=== PATIENT | female | born 1985 | race Caucasian/White ===

== ENCOUNTER → 2021-12-19 16:11 | Outpatient (CLI) | payer OTHER, MEDICAID, SELFPAY ==
[2021-12-19 17:20] LABS: Influenza A - CEPHEID Flu A NEGATIVE (NEGATIVE); Influenza B - CEPHEID Flu B NEGATIVE (NEGATIVE)
== END ==
PROVIDERS: PCP Physician Assistant; Visit Provider Physician Assistant
DX: R05.9 Cough, unspecified (principal); R09.81 Nasal congestion
CPT/HCPCS: 87502

== ENCOUNTER 2022-01-30 19:14 | Emergency (ER) | payer OTHER, MEDICAID, SELFPAY ==
[2022-01-30 19:40] VITALS: BP 112/66; PULSE 80; RESP 18; TEMP 36.6; O2SAT 99
--- NOTE | 2022-01-30 19:42 | DI.RAD.S_ITS ---
PROCEDURE: XR KNEE RT 3V INDICATIONS: Trauma, fall, contusion, pain TECHNIQUE: 3 views of the knee were acquired. COMPARISON: None. FINDINGS: Small suprapatellar knee joint effusion. No fracture or dislocation. Regional soft tissues otherwise normal. IMPRESSION: Small suprapatellar knee joint effusion without evidence of fracture or dislocation. Dictated by: Manpreet Manuel M.D. on 01/30/2022 at 20:01 Approved by: Manpreet Manuel M.D. on 01/30/2022 at 20:02
--- NOTE | 2022-01-30 20:59 | ED.LOWEXIN ---
HPI - Extremity Injury (Lower) General Chief Complaint: Extremity Injury, Lower Stated Complaint: FALL RIGHT KNEE INJURY Time Seen by Provider: 01/30/22 20:59 Source: patient Mode of arrival: Ambulatory History of Present Illness HPI Narrative: 36F smoker with history of migraines presents with a chief complaint a right knee injury just prior to arrival. She was stepping on an awkward piece of furniture and fell forward, landing on her right knee and possibly twisting as well. She denies any head, neck or back pain. She denies any hip or ankle pain. She has numbness, tingling or weakness. She admits to increased pain with ambulation and palpation and improvement with rest. She denies any history of the same Related Data Previous Rx's Medication Instructions Recorded sertraline 25 mg tablet See Rx Instructions PO DAILY #60 01/03/22 tabs sumatriptan succinate 25 mg tablet See Rx Instructions PO .COMPLEX 01/03/22 #20 tabs Allergies Allergy/AdvReac Type Severity Reaction Status Date / Time No Known Drug Allergies Allergy Unverified 12/19/21 15:52 Review of Systems Review of Systems Narrative: GENERAL: Denies chills, fatigue, malaise, fever, sweats. HEENT: Denies sinus pain, ear pain, sore throat, difficulty swallowing, dizziness. RESPIRATORY: Denies dyspnea, cough, wheezing, hemoptysis, sputum. CARDIOVASCULAR: Denies chest pain, palpitations, orthopnea, edema, GASTROINTESTINAL: Denies nausea, vomiting, abdominal pain, diarrhea, constipation, melena. : Denies dysuria, frequency, incontinence, hematuria, urinary retention. MUSCULOSKELETAL: See HPI SKIN: Denies rash, skin lesions, or other NEUROLOGIC: Denies weakness, headache, numbness, change in speech, confusion, seizures, incoordination. PSYCHIATRIC: No concerning psychosocial issues. 12 point review of systems is negative except for those stated above Patient History Medical History Anxiety and depression Early menopause Hx of endometriosis Lump on face Migraine Surgical History S/P total hysterectomy and bilateral salpingo-oophorectomy Social History Smoking Status: Current some day smoker Smoking Status: Current some day smoker alcohol intake frequency: a few times a month Substance Use Type: does not use Exam Narrative Exam Narrative: GENERAL: [36] year old patient appears stated age. Well-developed patient, in mild distress. HEAD: Atraumatic. Normocephalic. EYES: Pupils equal round and reactive. Extraocular motions intact. No scleral icterus. No injection or drainage. ENT: Nose without bleeding, purulent drainage. Throat without erythema, tonsillar hypertrophy or exudate. Airway patent. NECK: Trachea midline. Non tender CARDIOVASCULAR: Regular rate and rhythm without murmurs, gallops, or rubs. RESPIRATORY: Clear to auscultation. Breath sounds equal bilaterally. No wheezes, rales, or rhonchi. GASTROINTESTINAL: Abdomen soft, non-tender, nondistended. EXTREMITIES: Full but painful range of motion of right knee with some ecchymosis anteriorly just inferior to the patella, no effusion or ligamentous laxity. No joint line tenderness, only overlying the anterior knee. No pain with axial loading or Lul's BACK: Nontender without deformity or crepitance. No flank tenderness. NEURO: AOx3. SKIN: No rash or erythema of visible areas Initial Vital Signs Initial Vital Signs: Vital Signs Temperature 97.9 F 01/30/22 19:40 Pulse Rate 80 01/30/22 19:40 Respiratory Rate 18 01/30/22 19:40 Blood Pressure 112/66 01/30/22 19:40 Pulse Oximetry 99 01/30/22 19:40 Oxygen Delivery Method 01/30/22 19:40 Course Orders Ordered: ED Orders 01/30/22 19:42 XR knee RT 3V Stat Vital Signs Vital signs: Vital Signs - 8 hr 01/30/22 19:40 Temperature 97.9 F Pulse Rate 80 Respiratory Rate 18 Blood Pressure 112/66 Pulse Oximetry 99 Oxygen Delivery Method Room Air MDM - Extremity Injury (Lower) Imaging Data Extremity x-ray #1: Radiologist's Impression: [address] [address] XRay Report Signed Patient: Alla Valencia MR#: [id number] : 1985 Acct:[id number] Age/Sex: 36 / F Date of Service: 01/30/22 Loc: ED Accession Number: [id number] ?? Procedure: XR knee RT 3V Ordering Provider: Earnest Churchill D.O. PROCEDURE:? XR KNEE RT 3V ? INDICATIONS:? Trauma, fall, contusion, pain ? TECHNIQUE:? 3 views of the knee were acquired.? ? COMPARISON:? None. ? FINDINGS:? ? Small suprapatellar knee joint effusion.? No fracture or dislocation.? Regional soft tissues otherwise normal. ? ? IMPRESSION:? Small suprapatellar knee joint effusion without evidence of fracture or dislocation. ? ? Dictated by: Manpreet Manuel M.D. on 01/30/2022 at 20:01 ? ? Approved by: Manpreet Manuel M.D. on 01/30/2022 at 20:02 ? Discharge Plan Departure Patient Disposition: Home Clinical Impression: Contusion of knee, right, Knee sprain Instructions: DI for Knee Sprain Activity Restrictions/Additional Instructions: *You have been diagnosed with [knee contusion and sprain. As we discussed your history and physical exam as well as x-ray are reassuring and there is no evidence of fracture or dislocation] *What to do: *Please continue to take your regular medications as directed. [ ] New medication prescriptions sent to your pharmacy: [ ] [ ] New medication written as a paper prescription [x] Tylenol and occasional Motrin for pain *Please follow up your primary care doctor and let them know you were seen in the Emergency Department and that we ask that you be seen in follow up. We will electronically transmit a record of today's note if your PCP is in our system *Return to Emergency Department if you should have any new, worsening or concerning symptoms, such as [worsening pain, significant swelling, cold extremities, numbness, tingling, weakness or other bothersome symptoms Prescriptions: No Action sumatriptan succinate 25 mg tablet See Rx Instructions PO .COMPLEX Qty: 20 1RF Rx Instructions: take 1 tab at onset of headache; if no relief may repeat 1 tab after at least 2 hrs; max = 4 tabs/24 hr PO sertraline 25 mg tablet See Rx Instructions PO DAILY Qty: 60 5RF Rx Instructions: start with 1 tab daily for two weeks, the take 2 tabs daily if needed; orally daily; Referrals: Riky Anderson DO [Primary Care Provider] - Stand Alone Forms: Work Release Note Visit Report Forms: Patient Portal/API
== END 2022-01-30 21:41 | disposition home or self-care (01) ==
PROVIDERS: Emergency Provider Emergency Medicine; PCP Family Medicine
DX: S80.01XA Contusion of right knee, initial encounter (principal); S83.91XA Sprain of unspecified site of right knee, initial encounter; W22.03XA Walked into furniture, initial encounter
CPT/HCPCS: 73562; 99282; 99283

== ENCOUNTER 2023-05-21 09:33 | Emergency (ER) | payer SELFPAY ==
[2023-05-21 09:45] VITALS: BP 122/82; PULSE 79; O2SAT 100
[2023-05-21 09:47] VITALS: BP 123/74; PULSE 76; O2SAT 100
--- NOTE | 2023-05-21 09:48 | ED.GENADULT ---
HPI - General Adult General Chief complaint: Urogenital-Female Stated complaint: blood in urine and back pain Time Seen by Provider: 05/21/23 09:35 Source: patient Mode of arrival: Ambulatory Limitations: no limitations History of Present Illness HPI narrative: Patient is a 37-year-old female. Several years ago she would a total hysterectomy secondary to endometriosis. Because of the she is not on control. She states that she did have her ovaries removed and she thinks her cervix is gone as well. Yesterday she had bleeding. She states it was not coming from her stool. She is unsure whether or not it was urine or vaginal source. She did use a tampon yesterday. The tampon was bloody upon removal but then as the day went on the bleeding subsided. She was having some lower abdominal pain at the time. She is now having back discomfort. No specific urinary symptoms. No fevers. No vomiting. No other abdominal surgeries except for the hysterectomy. Related Data Previous Rx's Medication Instructions Recorded sertraline 25 mg tablet See Rx Instructions PO DAILY #60 01/03/22 tabs sumatriptan succinate 25 mg tablet See Rx Instructions PO .COMPLEX 01/03/22 #20 tabs progesterone micronized 200 mg 200 mg PO BEDTIME #30 caps 02/13/22 capsule (Prometrium) estradiol 1 mg tablet 1 mg PO DAILY #30 tabs 03/27/22 Allergies Allergy/AdvReac Type Severity Reaction Status Date / Time No Known Drug Allergies Allergy Verified 03/27/22 09:01 Review of Systems Constitutional Constitutional: Reports system reviewed and no additional complaints, except as documented Cardiovascular Cardiovascular: Reports system reviewed and no additional complaints, except as documented Respiratory Respiratory: Reports system reviewed and no additional complaints, except as documented Gastrointestinal Gastrointestinal: Reports system reviewed and no additional complaints, except as documented Genitourinary Genitourinary: Reports system reviewed and no additional complaints, except as documented Integumentary/Breasts Skin/Breast: Reports system reviewed and no additional complaints, except as documented Neurologic Neurologic: Reports system reviewed and no additional complaints, except as documented Patient History Medical History Acute pain of right knee Cyst Psoriasis Headache Hx of endometriosis Early menopause Migraine Anxiety and depression Lump on face Surgical History (Updated 02/06/22 @ 21:54 by Julisa Torres) Anesthesia History of section (~2009) S/P total hysterectomy and bilateral salpingo-oophorectomy (~2015) Social History Smoking Status: Current some day smoker Smoking Status: Current some day smoker alcohol intake frequency: a few times a month Substance Use Type: does not use Exam Initial Vital Signs Initial Vital Signs: Vital Signs Pulse Rate 79 05/21/23 09:45 Blood Pressure 122/82 05/21/23 09:45 Pulse Oximetry 100 05/21/23 09:45 HENMT Head: normal to inspection and normocephalic Resp Effort & Inspection: normal respiratory effort Cardio Rate: regular rate GI Inspection: normal to inspection and non-distended Palpation: soft, No firm and No tender External Female Exam: normal external appearance Speculum Exam - Vagina: normal appearance of the vagina, not erythematous, no lacerations, no lesions and No vaginal bleeding OB/External & Speculum: No vaginal bleeding Back/Spine/Pelvis Other: Lower lumbar paraspinal tenderness to palpation Neuro General: patient alert, patient awake and moves all extremities Extrem General: capillary refill normal Course Orders Ordered: ED Orders 05/21/23 09:51 Basic Metabolic Panel Stat Complete Blood Count AUTO DIFF Stat 05/21/23 10:07 CT kidney ureter bladder (KUB) Stat Vital Signs Vital signs: Vital Signs - 8 hr 05/21/23 09:45 05/21/23 09:45 05/21/23 09:47 Temperature Pulse Rate 79 Respiratory Rate Blood Pressure 122/82 123/74 Pulse Oximetry 100 Oxygen Delivery Method 05/21/23 09:47 05/21/23 09:49 Temperature 97.9 F Pulse Rate 76 80 Respiratory Rate 18 Blood Pressure 122/82 Pulse Oximetry 100 100 Oxygen Delivery Method Room Air Medical Decision Making Lab Data Lab results reviewed: Yes I reviewed the patient's lab results. 05/21/23 09:59 05/21/23 09:59 Labs: Lab Results 05/21/23 Range/Units 09:59 WBC 6.4 (4.5-11.0) X10^3/uL RBC 4.21 (4.0-5.2) X10^6/uL Hgb 13.5 (12.0-16.0) g/dL Hct 39.7 (36-46) % MCV 94.5 (80-100) fL MCH 32.1 (26-34) PG MCHC 34.0 (30-36) % RDW 13.3 (11.6-14.8) % Plt Count 376 (150-400) X10^3/uL Neut % (Auto) 56.5 (50-75) % Lymph % (Auto) 30.1 (25-40) % [place] % (Auto) 10.4 (3-14) % Eos % (Auto) 2.0 (2-4) % Baso % (Auto) 1.0 (0-2) % Neut # (Auto) 3600 (2291-1852) /uL Lymph # (Auto) 1900 (2011-0644) /uL [place] # (Auto) 700 (0-900) /uL Eos # (Auto) 100 (0-450) /uL Baso # (Auto) 100 (0-100) /uL Sodium 137 (137-145) mmol/L Potassium 4.6 (3.4-5.1) mmol/L Chloride 103 (98-107) mmol/L Carbon Dioxide 27 (22-32) mmol/L BUN 17 (7-17) mg/dL Creatinine 0.75 (0.52-1.04) mg/dL Estimated GFR > 60 (>60) mL/min BUN/Creatinine Ratio 22.7 H (6-22) Glucose 95 (70-100) mg/dL Calcium 9.8 (8.4-10.2) mg/dL Point of Care Testing Test Results Negative Urine Dip Bedside Urine Glucose Negative Bedside Urine Bilirubin - Negative Bedside Urine Ketone - Negative Urine Specific [place] 1.030 Bedside Urine Occult Blood + Bedside Urine pH 6.0 Bedside Urine Protein - Negative Bedside Urine Urobilinogen - Negative Bedside Urine Nitrite - Negative Bedside Urine Leukocytes - Negative Esterase Point of care testing: Point of Care Testing Test Results Negative Urine Dip Bedside Urine Glucose Negative Bedside Urine Bilirubin - Negative Bedside Urine Ketone - Negative Urine Specific [place] 1.030 Bedside Urine Occult Blood + Bedside Urine pH 6.0 Bedside Urine Protein - Negative Bedside Urine Urobilinogen - Negative Bedside Urine Nitrite - Negative Bedside Urine Leukocytes - Negative Esterase Imaging Data CT scan - abdomen/pelvis: Radiologist's Impression: PROCEDURE: CT KIDNEY URETER BLADDER (KUB) INDICATIONS: Hematuria, lower abdominal/back pain TECHNIQUE: Axial sections were acquired from the lung bases to the pubic symphysis. Coronal and sagittal reformats were performed. For radiation dose reduction, the following was used: automated exposure control, adjustment of mA and/or kV according to patient size. COMPARISON: None. FINDINGS: Image quality: Excellent. Lung bases: Unremarkable. Small hiatal hernia. Heart: No significant findings. URINARY: Right Kidney: No stones or hydronephrosis. Right Ureter: No hydroureter. Left Kidney: No stones or hydronephrosis. Left Ureter: No hydroureter. Bladder: Normal wall thickness. No stones. ABDOMEN: Liver: Unremarkable. Gallbladder: Unremarkable. Biliary ducts: Unremarkable. Pancreas: Unremarkable. Spleen: Unremarkable. Adrenal Glands: Unremarkable. Stomach and Bowel: Stomach, small bowel loops, and colon are unremarkable. There is a large amount of stool in colon. Normal appendix. Peritoneum: No abnormal intraperitoneal fluid. No free air. Ventral Wall: There is a small fat containing periumbilical ventral hernia above the umbilicus at midline. Abdominal Nodes: No enlarged retroperitoneal or mesenteric lymph nodes. Vessels: Aorta and inferior vena cava are normal in size. PELVIS: Pelvic Organs: Uterus is absent. Ovaries are not well seen. No pathological free-fluid in cul-de-sac. Pelvic Nodes: Unremarkable. Miscellaneous: No inguinal hernias are seen. Bones: Unremarkable. IMPRESSION: 1. No renal stones or hydronephrosis. A cause for gross hematuria is not identified. 2. Small small fat containing ventral hernia above umbilicus. 3. A large amount of stool in colon. MDM Narrative Medical decision making narrative: Patient does have a benign exam. There were no vaginal findings that was explain any sort of bleeding. She did have hematuria but no signs of infection. The CT scan showed no acute pathology. 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 I did discuss this with her. Discussed the use of Tylenol and ibuprofen and return precautions. She expressed understanding and agreement. Discharge Plan Departure Patient Disposition: Home Clinical Impression: Hematuria, Low back pain Instructions: DI for Hematuria Activity Restrictions/Additional Instructions: Continue to take any medications as directed. You can take Tylenol/ibuprofen for any discomfort. If your symptoms continue you may need a follow-up with aluminum shingle roofer or your primary doctor. Prescriptions: No Action progesterone micronized [Prometrium] 200 mg capsule 200 mg PO BEDTIME Qty: 30 12RF sumatriptan succinate 25 mg tablet See Rx Instructions PO .COMPLEX Qty: 20 1RF Rx Instructions: take 1 tab at onset of headache; if no relief may repeat 1 tab after at least 2 hrs; max = 4 tabs/24 hr PO sertraline 25 mg tablet See Rx Instructions PO DAILY Qty: 60 5RF Rx Instructions: start with 1 tab daily for two weeks, the take 2 tabs daily if needed; orally daily; estradiol 1 mg tablet 1 mg PO DAILY Qty: 30 12RF Referrals: Humphrey Anderson DO [Primary Care Provider] - Stand Alone Forms: Patient Portal/API, Work Release Note
[2023-05-21 09:49] VITALS: BP 122/82; PULSE 80; RESP 18; TEMP 36.6; O2SAT 100; BMI 28.1
--- NOTE | 2023-05-21 10:07 | DI.CT.S_ITS ---
PROCEDURE: CT KIDNEY URETER BLADDER (KUB) INDICATIONS: Hematuria, lower abdominal/back pain TECHNIQUE: Axial sections were acquired from the lung bases to the pubic symphysis. Coronal and sagittal reformats were performed. For radiation dose reduction, the following was used: automated exposure control, adjustment of mA and/or kV according to patient size. COMPARISON: None. FINDINGS: Image quality: Excellent. Lung bases: Unremarkable. Small hiatal hernia. Heart: No significant findings. URINARY: Right Kidney: No stones or hydronephrosis. Right Ureter: No hydroureter. Left Kidney: No stones or hydronephrosis. Left Ureter: No hydroureter. Bladder: Normal wall thickness. No stones. ABDOMEN: Liver: Unremarkable. Gallbladder: Unremarkable. Biliary ducts: Unremarkable. Pancreas: Unremarkable. Spleen: Unremarkable. Adrenal Glands: Unremarkable. Stomach and Bowel: Stomach, small bowel loops, and colon are unremarkable. There is a large amount of stool in colon. Normal appendix. Peritoneum: No abnormal intraperitoneal fluid. No free air. Ventral Wall: There is a small fat containing periumbilical ventral hernia above the umbilicus at midline. Abdominal Nodes: No enlarged retroperitoneal or mesenteric lymph nodes. Vessels: Aorta and inferior vena cava are normal in size. PELVIS: Pelvic Organs: Uterus is absent. Ovaries are not well seen. No pathological free-fluid in cul-de-sac. Pelvic Nodes: Unremarkable. Miscellaneous: No inguinal hernias are seen. Bones: Unremarkable. IMPRESSION: 1. No renal stones or hydronephrosis. A cause for gross hematuria is not identified. 2. Small small fat containing ventral hernia above umbilicus. 3. A large amount of stool in colon. Dictated by: Rose Marie Del Valle M.D. on 05/21/2023 at 10:34 Approved by: Rose Marie Del Valle M.D. on 05/21/2023 at 10:39
[2023-05-21 10:20] LABS: Add Manual Diff / Slide Review NO; Basophils Absolute Auto 100 /uL (0-100); Eosinophils Absolute Auto 100 /uL (0-450); Hematocrit 39.7 % (36-46); Hemoglobin 13.5 g/dL (12.0-16.0); Lymphocytes Absolute Auto 1900 /uL (1100-4500); Lymphocytes Percent Auto 30.1 % (25-40); Mean Corpuscular Hemoglobin 32.1 PG (26-34); Mean Corpuscular Volume 94.5 fL (80-100); Monocytes Absolute Auto 700 /uL (0-900); Monocytes Percent Auto 10.4 % (3-14); Neutrophils Absolute Auto 3600 /uL (1500-7000); Neutrophils Percent Auto 56.5 % (50-75); Platelet Count 376 X10^3/uL (150-400); Red Blood Cell Count 4.21 X10^6/uL (4.0-5.2); Red Cell Distribution Width 13.3 % (11.6-14.8); White Blood Cell Count 6.4 X10^3/uL (4.5-11.0)
[2023-05-21 10:36] LABS: BUN Creatinine Ratio 22.7 (6-22); Blood Urea Nitrogen 17 mg/dL (7-17); Calcium 9.8 mg/dL (8.4-10.2); Carbon Dioxide 27 mmol/L (22-32); Chloride 103 mmol/L (98-107); Estimated Glomerular Filt Rate > 60 mL/min (>60); Glucose 95 mg/dL (70-100); HEMOLYSIS 34 (0-50); Potassium 4.6 mmol/L (3.4-5.1); Sodium 137 mmol/L (137-145)
[2023-05-21 11:14] VITALS: BP 124/70; PULSE 75; RESP 16; O2SAT 98
== END 2023-05-21 11:15 | disposition home or self-care (01) ==
PROVIDERS: Emergency Provider Emergency Medicine; PCP Family Medicine
DX: R31.9 Hematuria, unspecified (principal); M54.50 Low back pain, unspecified; R10.30 Lower abdominal pain, unspecified
CPT/HCPCS: 36415; 74176; 80048; 81003; 81025; 85025; 99283; 99284

== ENCOUNTER 2023-07-09 14:30 | Emergency (ER) | payer SELFPAY ==
[2023-07-09 14:46] VITALS: BP 115/58; PULSE 83; RESP 18; TEMP 36.9; O2SAT 98
--- NOTE | 2023-07-09 15:03 | DI.RAD.S_ITS ---
PROCEDURE: XR LUMBAR SPINE 2-3V INDICATIONS: lower back pain TECHNIQUE: 3 views of the lumbar spine were acquired. COMPARISON: None. FINDINGS: Bones: 5 [id number] vertebrae are present. There is normal bony alignment. No vertebral body compression fractures. No suspicious bony lesions. Soft tissues: Overlying bowel gas pattern is normal. No suspicious soft tissue calcifications. IMPRESSION: No acute bony abnormality. Dictated by: Gustavo Drew M.D. on 07/09/2023 at 17:02 Approved by: Gustavo Drew M.D. on 07/09/2023 at 17:03
[2023-07-09] MEDS: ACETAMINOPHEN 325 MG TABLET 975 MG PO (15:26)
[2023-07-09] MEDS: CYCLOBENZAPRINE 10 MG TABLET PO (15:27)
[2023-07-09] MEDS: KETOROLAC 30 MG/ML VIAL IM (15:27)
--- NOTE | 2023-07-09 15:46 | ED.BACK ---
HPI - Back Pain/Injury <Sam Barrett PA-C - Last Filed: 07/09/23 17:35> General Chief Complaint: Back Pain/Injury Stated Complaint: back pain Time Seen by Provider: 07/09/23 14:56 Source: patient History of Present Illness HPI Narrative: 37-year-old female presents to the ED with 1 day of lower back pain. Patient states that she usually twists and cracked her back every day as a form of stretching. She did that routinely yesterday at 7:00 p.m.. She woke up at 1:00 a.m. this morning with severe lower back pain. Patient states that it sometimes radiates down her right leg. Patient denies numbness, tingling, weakness. Patient denies saddle paresthesias. Patient denies urinary hesitancy, urinary incontinence, bowel incontinence. Patient denies fever, chills. Related Data Previous Rx's Medication Instructions Recorded sertraline 25 mg tablet See Rx Instructions PO DAILY #60 01/03/22 tabs sumatriptan succinate 25 mg tablet See Rx Instructions PO .COMPLEX 01/03/22 #20 tabs progesterone micronized 200 mg 200 mg PO BEDTIME #30 caps 02/13/22 capsule (Prometrium) estradiol 1 mg tablet 1 mg PO DAILY #30 tabs 03/27/22 Allergies Allergy/AdvReac Type Severity Reaction Status Date / Time No Known Drug Allergies Allergy Verified 03/27/22 09:01 Review of Systems <Sam Barrett PA-C - Last Filed: 07/09/23 17:35> Constitutional Constitutional: Denies chills, Denies fatigue, Denies fever(s), Denies frequent falls, Denies lethargy and Denies weakness Eyes Eyes: Denies change in vision, Denies eye discharge, Denies irritation and Denies loss of vision ENT Ears, Nose, Mouth, and Throat: Denies change in voice, Denies dizziness, Denies neck pain, Denies sore throat and Denies throat swelling Cardiovascular Cardiovascular: Denies chest pain, Denies irregular heart rhythm, Denies lightheadedness, Denies palpitations, Denies dyspnea, Denies dyspnea on exertion and Denies orthopnea Respiratory Respiratory: Denies cough, Denies dyspnea, Denies dyspnea on exertion and Denies wheezing Gastrointestinal Gastrointestinal: Denies abdominal pain, Denies change in bowel habits, Denies diarrhea, Denies nausea and Denies vomiting Musculoskeletal Musculoskeletal: Reports back pain, Denies neck pain, Denies numbness and Reports radiating pain into limb Integumentary/Breasts Skin/Breast: Denies pruritus, Denies erythema, Denies rash and Denies wounds Neurologic Neurologic: Denies behavioral changes, Denies confusion, Denies dizziness, Denies frequent falls, Denies loss of vision, Denies numbness and Denies weakness Psychiatric Psychiatric: Denies anxiety, Denies behavioral changes, Denies confusion, Denies depression, Denies homicidal ideation and Denies suicidal ideation Endocrine Endocrine: Denies fatigue, Denies flushing and Denies palpitations Hematologic/Lymphatic Hematologic/Lymphatic: Denies easy bruising Allergic/Immunologic Allergic/Immunologic: Denies urticaria, Denies throat swelling and Denies wheezing Patient History <Sam Barrett PA-C - Last Filed: 07/09/23 17:35> Medical History Acute pain of right knee Cyst Psoriasis Headache Hx of endometriosis Early menopause Migraine Anxiety and depression Lump on face Surgical History (Updated 02/06/22 @ 21:54 by Julisa Torres) Anesthesia History of section (~2009) S/P total hysterectomy and bilateral salpingo-oophorectomy (~2015) Social History Smoking Status: Current some day smoker Smoking Status: Current some day smoker alcohol intake frequency: a few times a month Substance Use Type: does not use Exam <Sam Barrett PA-C - Last Filed: 07/09/23 17:35> Narrative Exam Narrative: Const General:?cooperative, healthy appearing and comfortable [facility] Head:?normal to inspection Ears:?hearing grossly normal bilaterally Nose:?external nose normal Face and sinus:?normal facial exam and sinuses nontender Mouth:?oral mucosae normal Throat:?posterior oropharynx normal Eyes General:?appearance normal, both eyes and all related structures Neck Neck:?normal visual inspection and no lymphadenopathy noted Resp Effort & Inspection:?normal respiratory effort Auscultation:?clear to auscultation bilaterally Cardio Rate:?regular rate Rhythm:?regular rhythm Musculoskeletal There is some midline tenderness to palpation of the lumbar region. Full range of motion. Strength and sensation is intact. Gait is slow but patient is able to ambulate independently. Neuro General:?patient alert, patient awake and patient oriented x3 Initial Vital Signs Initial Vital Signs: Vital Signs Temperature 98.4 F 07/09/23 14:46 Pulse Rate 83 07/09/23 14:46 Respiratory Rate 18 07/09/23 14:46 Blood Pressure 115/58 L 07/09/23 14:46 Pulse Oximetry 98 07/09/23 14:46 Oxygen Delivery Method Room Air 07/09/23 14:46 <Dali Scott DO - Last Filed: 07/16/23 03:19> Initial Vital Signs Initial Vital Signs: Vital Signs Temperature 98.4 F 07/09/23 14:46 Pulse Rate 83 07/09/23 14:46 Respiratory Rate 18 07/09/23 14:46 Blood Pressure 115/58 L 07/09/23 14:46 Pulse Oximetry 98 07/09/23 14:46 Oxygen Delivery Method Room Air 07/09/23 14:46 Course <Sam Barrett PA-C - Last Filed: 07/09/23 17:35> Orders Ordered: Discontinued Medications Acetaminophen (Acetaminophen 325 Mg Tablet) 975 mg PO NOW ONE Stop: 07/09/23 15:01 Last Admin: 07/09/23 15:26 Dose: 975 mg Documented By: ELVER Cyclobenzaprine HCl (Cyclobenzaprine 10 Mg Tablet) 10 mg PO NOW ONE Stop: 07/09/23 15:01 Last Admin: 07/09/23 15:27 Dose: 10 mg Documented By: ELVER Ketorolac Tromethamine (Ketorolac 30 Mg/Ml Vial) 30 mg IM NOW ONE Stop: 07/09/23 15:01 Last Admin: 07/09/23 15:27 Dose: 30 mg Documented By: ELVER Vital Signs Vital signs: Vital Signs - 8 hr 07/09/23 14:46 Temperature 98.4 F Pulse Rate 83 Respiratory Rate 18 Blood Pressure 115/58 L Pulse Oximetry 98 Oxygen Delivery Method Room Air <Dali Scott DO - Last Filed: 07/16/23 03:19> Orders Ordered: Discontinued Medications Acetaminophen (Acetaminophen 325 Mg Tablet) 975 mg PO NOW ONE Stop: 07/09/23 15:01 Last Admin: 07/09/23 15:26 Dose: 975 mg Documented By: ELVER Cyclobenzaprine HCl (Cyclobenzaprine 10 Mg Tablet) 10 mg PO NOW ONE Stop: 07/09/23 15:01 Last Admin: 07/09/23 15:27 Dose: 10 mg Documented By: ELVER Ketorolac Tromethamine (Ketorolac 30 Mg/Ml Vial) 30 mg IM NOW ONE Stop: 07/09/23 15:01 Last Admin: 07/09/23 15:27 Dose: 30 mg Documented By: ELVER Vital Signs Vital signs: Vital Signs - 8 hr 07/09/23 14:46 Temperature 98.4 F Pulse Rate 83 Respiratory Rate 18 Blood Pressure 115/58 L Pulse Oximetry 98 Oxygen Delivery Method Room Air MDM - Back Pain/Injury <Sam Barrett PA-C - Last Filed: 07/09/23 17:35> MDM Narrative Medical decision making narrative: 37-year-old female presents to the ED with 1 day of lower back pain. There is some midline tenderness to palpation of the lumbar region. Will obtain a lumbar x-ray to rule out fracture/dislocation. Will give Toradol, Flexeril for symptoms. Will reassess. Patient's pain improved with medications. Lumbar x-ray without acute findings. Patient's symptoms likely due to a musculoskeletal sprain/strain. Prescribed Flexeril for continued use at home as needed. Recommend continued use of ibuprofen. Recommend follow-up with PCP for further evaluation. ED return precautions discussed with patient. Patient verbalized understanding. Medical records reviewed: Yes Discharge Plan Departure Patient Disposition: Home Clinical Impression: Low back pain Qualifiers: Chronicity: acute Back pain laterality: unspecified Sciatica presence: with sciatica Sciatica laterality: sciatica of right side Qualified Code(s): M54.41 - Lumbago with sciatica, right side Instructions: DI for Back Strain or Sprain Activity Restrictions/Additional Instructions: You were evaluated in the ED today for lower back pain. Your x-ray was normal. Your symptoms are likely due to a musculoskeletal sprain/strain. Your symptoms improved with Toradol and Flexeril. You are being prescribed Flexeril which is a muscle relaxant for continued use at home as needed. You may also take 800 mg of ibuprofen every 8 hours with food to reduce the pain and inflammation. Please follow-up with your PCP as soon as possible. Return to the ED if you have worsening symptoms, numbness, tingling, weakness, urinary difficulties. Prescriptions: No Action progesterone micronized [Prometrium] 200 mg capsule 200 mg PO BEDTIME Qty: 30 12RF sumatriptan succinate 25 mg tablet See Rx Instructions PO .COMPLEX Qty: 20 1RF Rx Instructions: take 1 tab at onset of headache; if no relief may repeat 1 tab after at least 2 hrs; max = 4 tabs/24 hr PO sertraline 25 mg tablet See Rx Instructions PO DAILY Qty: 60 5RF Rx Instructions: start with 1 tab daily for two weeks, the take 2 tabs daily if needed; orally daily; estradiol 1 mg tablet 1 mg PO DAILY Qty: 30 12RF Referrals: Humphrey Anderson DO [Primary Care Provider] - Stand Alone Forms: Patient Portal/API, Work Release Note ED Sign-out <Dali Scott DO - Last Filed: 07/16/23 03:19> Cosign ED Attending Cosignature Attestation: I was available for consultation.
[2023-07-09 17:36] VITALS: BP 99/57; PULSE 80; RESP 17; O2SAT 98
== END 2023-07-09 17:36 | disposition home or self-care (01) ==
PROVIDERS: Emergency Provider Student in an Organized Health Care Education/Training Program; PCP Family Medicine
DX: M54.41 Lumbago with sciatica, right side (principal)
CPT/HCPCS: 72100; 96372; 99283; 99284; J1885

== ENCOUNTER → 2024-01-01 08:34 | Outpatient (CLI) | payer OTHER, SELFPAY ==
[2024-01-01 09:59] LABS: Follicle Stimulating Hormone 84.9 mIU/mL
== END ==
LOC: LAB 08:34
PROVIDERS: PCP Nurse Practitioner Family; Referring Provider Obstetrics & Gynecology; Visit Provider Obstetrics & Gynecology
DX: E28.319 Asymptomatic premature menopause (principal); Z87.42 Personal history of other diseases of the female genital tract; Z90.710 Acquired absence of both cervix and uterus; Z90.722 Acquired absence of ovaries, bilateral; Z90.79 Acquired absence of other genital organ(s)
CPT/HCPCS: 36415; 82670; 82677; 82679; 83001; 84402; 84403

== ENCOUNTER 2024-02-26 09:22 | Day surgery (SDC) | payer OTHER, SELFPAY ==
[2024-02-24 12:33] VITALS: BMI 31.8
--- NOTE | 2024-02-25 08:14 | PM.HP.1 ---
History of Present Illness History of Present Illness Chief complaint: [facility] Medical History Current every day smoker Acute pain of right knee Cyst Psoriasis Headache Hx of endometriosis Early menopause Migraine Anxiety and depression Lump on face Surgical History Anesthesia History of section (~2009) S/P total hysterectomy and bilateral salpingo-oophorectomy (~2015) Social History marital status: unmarried,single details: Pt. lives with her mom and dad. household members: family lives independently: Yes occupational status: employed Smoking Status: Current some day smoker alcohol intake: current substance use type: does not use Meds Home Medications and Allergies Home Medications Medication Instructions Recorded Confirmed Type estradiol 0.025 mg/24 hr 1 patch transdermal 2XW #8 ea 02/13/24 02/13/24 Rx semiweekly transdermal patch Allergies Allergy/AdvReac Type Severity Reaction Status Date / Time No Known Drug Allergies Allergy Verified 02/13/24 09:03 Assessment & Plan Time-Based Coding :: [TOTAL MINUTES] spent with patient and on the chart (including review of chart, obtaining history, exam, reviewing outside data, placing orders, documenting exam and treatment plan, and counseling patient) on [DATE].
[2024-02-26] VITALS (9 sets, daily range): BP systolic 106–118; BP diastolic 68–79; PULSE 65–88; RESP 12–18; TEMP 36.6–36.8; O2SAT 97–99; BMI 30.9
[2024-02-26] MEDS: ACETAMINOPHEN 325 MG TABLET 975 MG PO (09:50)
[2024-02-26] MEDS: LACTATED RINGERS 1,000 ML 21 ML IV (09:52)
[2024-02-26] MEDS: CEFAZOLIN 2 GM/100 ML PREMIX 100 ML IV (10:17)
[2024-02-26] MEDS: BUPIVACAINE 0.25% (PF) VIAL 30 ML INJ (10:29)
--- NOTE | 2024-02-26 10:31 | SUR.OPER ---
Supine on padded OR bed, head on pillow, arms secured on padded arm boards at <90 degrees abduction, legs uncrossed, safety belt at thigh, tape over blanket over lower legs.
[2024-02-26] MEDS: HYDROMORPHONE 1 MG INJ IV ×2 (11:10→11:15)
[2024-02-26] MEDS: OXYCODONE IR 5 MG TABLET PO ×2 (11:10→11:37)
[2024-02-26] MEDS: ONDANSETRON 4 MG/2 ML INJ IV (11:29)
--- NOTE | 2024-02-26 13:50 | PM.OP.1 ---
Operative Date/Time/Diagnoses Date of procedure: 02/26/24 Time of procedure: 13:50 Pre-op diagnosis: Umbilical hernia Post-op diagnosis: same Procedure & Clinicians Procedure: open umbilical hernia repair with mesh Same procedure as scheduled: Yes Indications: symptomatic umbilical hernia Surgeon: Andres Sorensen Dairy Equipment Repairer: Oh Scott Anesthesia Type: General Operative Notes Findings: 1.5 cm fascial defect Estimated Blood Loss (mL): 5 Procedure in detail: Patient was brought to the operating room placed supine on the table. Bilateral lower extremity compression devices were applied. General anesthesia was induced and they were intubated with an endotracheal tube. They received 2 g of Ancef prior to skin incision. They were prepped and draped in sterile fashion. A time-out was performed. A curvilinear incision was made inferior to the umbilicus. The subcutaneous tissues were divided. The umbilical hernia was identified and the hernia sac was dissected off the umbilical skin and circumferentially off of the fascia defect. The hernia sac was sharply opened and contained viable omentum. The omentum was reduced back into the abdomen. Using blunt dissection I carefully carefully freed the hernia sac from beneath the fascia defect in order to accomodate the mesh. The fascia defect was 1.5 cm in maximal diameter. A Bard Ventralex ST hernia patch 4 cm was inserted beneath the fascia defect and above the peritoneum in a sublay position. The mesh was anchored in multiple locations using Ethibond suture to the fascia and the fascial defect was closed over the mesh. The umbilical skin was tacked to the subcutaneous tissues and then the remainder of the subcutaneous tissues were reapproximated using 3 0 Vicry,l skin closed with 4 0 Monocryl followed by the application of Dermabond and Steri-Strips. Sponge instrument count at the end of the operation was correct. Patient tolerated procedure well was extubated and transferred to postoperative care unit in stable condition. Complications: none Post-operative Condition: stable Disposition: same day surgery
--- NOTE | 2024-02-27 13:56 | P.OP_ITS ---
Operative Date/Time/Diagnoses Date of procedure: 02/26/24 Pre-op diagnosis: Umbilical hernia Post-op diagnosis: same Procedure & Clinicians Procedure: Open umbilical hernia repair with mesh Same procedure as scheduled: Yes Indications: Symptomatic umbilical hernia Surgeon: Andres Sorensen Commercial Appraiser: Oh Scott Anesthesia Type: General Operative Notes Findings: 2 cm fascial defect containing omentum Estimated Blood Loss (mL): 5 Procedure in detail: Patient was brought to the operating room placed supine on the table. Bilateral lower extremity compression devices were applied. General anesthesia was induced and they were intubated with an endotracheal tube. They received 2 g of Ancef prior to skin incision. They were prepped and draped in sterile fashion. A time-out was performed. A curvilinear incision was made inferior to the umbilicus. The subcutaneous tissues were divided. The umbilical hernia was identified and the hernia sac was dissected off the umbilical skin and circumferentially off of the fascia defect. The hernia sac was sharply opened and contained viable omentum. The omentum was reduced back into the abdomen. Using blunt dissection I carefully carefully freed the hernia sac from beneath the fascia defect in order to accomodate the mesh. The fascia defect was 2.0 cm in maximal diameter. A Bard Ventralex ST hernia patch 4 cm was inserted beneath the fascia defect and above the peritoneum in a sublay position. The mesh was anchored in multiple locations using Ethibond suture to the fascia and the fascial defect was closed over the mesh. The umbilical skin was tacked to the subcutaneous tissues and then the remainder of the subcutaneous tissues were reapproximated using 3 0 Vicry,l skin closed with 4 0 Monocryl followed by the application of Dermabond. Sponge instrument count at the end of the operation was correct. Patient tolerated procedure well was extubated and transferred to postoperative care unit in stable condition. Complications: none Post-operative Condition: stable Disposition: same day surgery
== END 2024-02-26 12:15 | disposition home or self-care (01) ==
PROVIDERS: PCP Nurse Practitioner Family; Referring Provider Surgery; Visit Provider Surgery
PROC: (CPT 49591; principal; 2024-02-26 10:45)
DX: K42.9 Umbilical hernia without obstruction or gangrene (principal)
CPT/HCPCS: 49591; 81025; J0690; J1100; J1170; J1885; J2250; J2405; J2704; J3010

== ENCOUNTER → 2024-06-23 16:09 | Outpatient (CLI) | payer OTHER, SELFPAY ==
[2024-06-23 18:16] LABS: Add Manual Diff / Slide Review NO; Basophils Absolute Auto 100 /uL (0-100); Eosinophils Absolute Auto 200 /uL (0-450); Hematocrit 40.2 % (36-46); Hemoglobin 13.4 g/dL (12.0-16.0); Lymphocytes Absolute Auto 2300 /uL (1100-4500); Lymphocytes Percent Auto 24.9 % (25-40); Mean Corpuscular HGB Conc 33.3 % (30-36); Mean Corpuscular Hemoglobin 32.8 PG (26-34); Mean Corpuscular Volume 98.6 fL (80-100); Monocytes Absolute Auto 1000 /uL (0-900); Monocytes Percent Auto 10.2 % (3-14); Neutrophils Absolute Auto 5800 /uL (1500-7000); Neutrophils Percent Auto 61.9 % (50-75); Platelet Count 400 X10^3/uL (150-400); Red Blood Cell Count 4.08 X10^6/uL (4.0-5.2); Red Cell Distribution Width 14.5 % (11.6-14.8); White Blood Cell Count 9.4 X10^3/uL (4.5-11.0)
[2024-06-23 18:36] LABS: Alanine Aminotransferase 48 IU/L (<35); Albumin 4.5 g/dL (3.5-5.0); Albumin Globulin Ratio 1.4 (1.0-2.8); Alkaline Phosphatase 65 U/L (38-126); Aspartate Aminotransferase 41 IU/L (14-36); BUN Creatinine Ratio 18.8 (6-22); Bilirubin Total 0.4 mg/dL (0.2-1.3); Blood Urea Nitrogen 21 mg/dL (7-17); Calcium 9.4 mg/dL (8.4-10.2); Carbon Dioxide 26 mmol/L (22-32); Chloride 105 mmol/L (98-107); Estimated Glomerular Filt Rate > 60 mL/min (>60); Globulin 3.2 g/dL (1.7-4.1); Glucose 88 mg/dL (70-100); HEMOLYSIS < 15 (0-50); Potassium 4.4 mmol/L (3.4-5.1); Sodium 136 mmol/L (137-145); Total Protein 7.7 g/dL (6.3-8.2)
[2024-06-23 19:06] LABS: TSH w/ Reflex to FT4 0.89 uIU/mL (0.47-4.68)
== END ==
PROVIDERS: PCP Nurse Practitioner Family; Referring Provider Physician Assistant; Visit Provider Physician Assistant
DX: R55 Syncope and collapse (principal)
CPT/HCPCS: 36415; 80053; 84443; 85025